=== PATIENT | male | born 1985 | race Caucasian/White ===

== ENCOUNTER 2022-06-22 07:32 | Outpatient (CLI) | payer BC, SELFPAY ==
--- NOTE | 2022-06-22 07:40 | ECG_ITS ---
Measurements Intervals [place] Rate: 86 P: 0 IN: 165 QRS: 9 QRSD: 107 T: 14 QT: 365 QTc: 437 Interpretive Statements SINUS RHYTHM BASELINE ARTIFACT INCOMPLETE RIGHT BUNDLE BRANCH BLOCK BORDERLINE ECG NO PREVIOUS ECG AVAILABLE FOR COMPARISON Electronically Signed On 06-22-2022 15:05:55 CDT by Jeffery Marcano M.D.
[2022-06-22 08:43] LABS: Anion Gap 8 mmol/L (8-16); Blood Urea Nitrogen 13 mg/dL (9-20); Carbon Dioxide 27 mmol/L (22-30); Chloride 103 mmol/L (98-107); Estimated Glomerular Filt Rate > 60; Glucose 169 mg/dL (65-110); Potassium 4.3 mmol/L (3.4-5.0); Sodium 138 mmol/L (137-145)
== END 2022-06-22 07:33 | disposition home or self-care (01) ==
LOC: ANHSURGERY 07:40
PROVIDERS: Anesthesiology; Visit Provider Otolaryngology
DX: E10.9 Type 1 diabetes mellitus without complications (principal); I45.10 Unspecified right bundle-branch block
CPT/HCPCS: 36415; 80048; 93005

== ENCOUNTER 2022-06-27 02:17 | Day surgery (SDC) | payer BC, SELFPAY ==
[2022-06-17 14:35] VITALS: BMI 43.7
--- NOTE | 2022-06-17 14:43 | PC.NURSE ---
Report to the Outpatient Waiting Room, entrance under the green pavilion located off [facility], at time 6:30 on date 06/27/22. OR Time: 8:30. Time changes happen often and if your time is changed the preop area will call you the afternoon before. - You and your visitor will be asked to self-screen and do not enter if you have any COVID symptoms. - Only one visitor and NO children visitors are allowed at this time. - The patient visitor is requested to leave or wait in car when not with patient due to restrictions. - A mask is required within the hospital. Patients may have clear liquids (water, carbonated beverages, clear teas, apple juice) until 3 hours prior to surgery (5:30) with a maximum of 20 ounces. - No food from midnight until time of surgery Take the following medications with a SIP of water the morning of surgery: NONE Medications to discontinue per physician: N/A Date to take last dose: N/A Please no make-up, nail lao, hairspray, perfume, deodorant, or body powder the day of surgery. No jewelry (including any body piercings) or valuables the day of surgery, leave them at home. Please take a shower or bath the night before, or the morning of, surgery with an antibacterial soap. Wear comfortable, loose fitting clothing. - Jewelry must be removed prior to entering the operating room. Rings and piercings that are not removed may be cut off. - The hospital will not accept responsibility for valuables. - Please leave all valuables, including medications, at home the day of surgery. If you are going home after surgery, a licensed regional dedicated truck driver must drive you home. - NO public transportation without another adult. - We recommend that an adult stay with you for 24 hours following discharge. - We also recommend that you do not drive, make important decision, drink alcoholic beverages, or take any drugs that were not prescribed by your health care provider for at least 24 hours after your discharge time. Follow any additional instructions given to you from your surgeon. If you or anyone in your household have experienced Covid symptoms in the past week, please notify your surgeon or the nurse liaison at the phone number below for possible testing. Telephone instructions given to PT - NICOLAS RUBIO and asked if any additional questions and then verbalized understanding. Patient advised to call surgeon office or pre surgery nurse liaison [phone] if any additional questions.
[2022-06-27] VITALS (9 sets, daily range): BP systolic 111–149; BP diastolic 59–92; PULSE 79–91; RESP 10–20; TEMP 36.4–36.5; O2SAT 95–100
[2022-06-27] MEDS: LACTATED RINGERS 1,000 ML 30 ML IV CONT (06:40)
[2022-06-27] MEDS: ACETAMINOPHEN 500 MG TABLET 1000 MG PO (07:07)
[2022-06-27 07:23] LABS: Glucose Point of Care 215 mg/dl (65-105)
--- NOTE | 2022-06-27 07:38 | P.HP_ITS ---
H&P: HPI History of Present Illness Date/Time: 06/27/22 07:38 Chief Complaint: Left TM perforation Narrative: Juan has a left TM perforation secondary to previous ear tubes. Here for tympanoplasty. Review of Systems Review of Systems: All systems reviewed & are unremarkable except as noted in HPI and below PMFSH Social History Social History Smoking status: Never smoker Alcohol intake: current Drinks per week: 3 Substance use: never Substance use type: does not use Living arrangements: with family Spiritual care concerns: No Meds Home Medications and Allergies Home Medications Medication Instructions Recorded Confirmed Type insulin glargine 100 unit/mL (3 48 unit subcut HS 06/17/22 06/17/22 History mL) subcutaneous pen (Lantus Solostar U-100 Insulin) insulin lispro 200 unit/mL (3 mL) See Rx Instructions .Route .COMPLEX 06/17/22 06/17/22 History subcutaneous pen (Humalog KwikPen U-200 Insulin) Allergies Allergy/AdvReac Type Severity Reaction Status Date / Time No Known Allergies Allergy Verified 06/17/22 14:33 Exam Narrative: 40% left central Tm perforation, dry without cholesteatoma or infe ction. Right ear with myringosclerosis. Rest of exam wnl. 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 Has chronic ETD and required several tubes as an adult. Insurance denied BDET for todays surgery so we will just address the TM perforation. r/b/a reviwed, pt understands and agrees, left ear marked. Refer to outpt H&p for full details.
--- NOTE | 2022-06-27 07:41 | P.PNAN_ITS ---
Anes - Initial Pre Proc Eval Procedure: Operation Date: 06/27/22 08:30 Proposed Procedures p Left Tympanoplasty - Bill Topete MD Date/Time: 06/27/22 07:41 Surgeon: Bill Topete MD Pre Op Diagnosis: tympanic membrane perforation- Left Patient Data Age: 36 Gender: M Height: 1.91 m Weight: 158.76 kg Allergies Allergy/AdvReac Type Severity Reaction Status Date / Time No Known Allergies Allergy Verified 06/17/22 14:33 Home Medications Medication Instructions Recorded Confirmed Type insulin glargine 100 unit/mL (3 48 unit subcut HS 06/17/22 06/17/22 History mL) subcutaneous pen (Lantus Solostar U-100 Insulin) insulin lispro 200 unit/mL (3 mL) See Rx Instructions .Route .COMPLEX 06/17/22 06/17/22 History subcutaneous pen (Humalog KwikPen U-200 Insulin) Laboratory Tests 06/27/22 07:17 POC Capillary Glucose 215 mg/dl H mg/dl (65-105) Patient hx anesthesia problems: none Family hx anesthesia problems: none Results Review: All pre-operative results and documents have been reviewed as part of the pre- operative evaluation. [facility] Past Medical History Medical History (Updated 06/27/22 @ 07:41 by David Capps MD) Diabetes Social History Social History Smoking status: Never smoker Alcohol intake: current Drinks per week: 3 Substance use: never Substance use type: does not use Living arrangements: with family Spiritual care concerns: No Anes - Eval Final PreProcedure Day of Procedure 06/27/22 07:41 Patient weight: morbidly obese Heart: regular rate and rhythm Lungs: clear to auscultation Airway: Mallampati scale class II Neurological: alert and oriented Last oral intake: >/= 8 hours ASA classification: III Emergent: no Anesthetic plan: proceed Anesthesia type and monitoring: general ETT and standard monitoring Results Review: All pre-operative results and documents have been reviewed as part of the pre- operative evaluation. Informed Consent: The patient's anesthetic plan and its attendant risks and benefits were discussed with the patient/family/POA. Questions were solicited and answers provided to the satisfaction of the patient/family/POA.
--- NOTE | 2022-06-27 07:41 | WPDHPUPDATE1 ---
History and Physical Update Update Date/Time: 06/27/22 07:41 History and Physical has been reviewed, including an updated exam of the patient. There are NO changes in the patient's condition. Risks, benefits, and alternatives have been discussed and questions answered. Patient agrees to proceed with procedure.
[2022-06-27] MEDS: ceFAZolin 3 GM/D5W 100 ML 100 ML IVPB (08:00)
[2022-06-27] MEDS: EPINEPHrine HCL INJ 1 MG/ML AMPUL IRRIGATION (08:30)
[2022-06-27] MEDS: MUPIROCIN 2% OINT 22 GM TUBE 1 APPLIC TOPICAL (09:26)
[2022-06-27] MEDS: CIPROFLOXACIN HCL 0.3% OP SOLN 2.5 ML BTL 4 DROP EACH EAR (09:28)
--- NOTE | 2022-06-27 09:32 | W.PM.PROC2 ---
Procedure Note - Detailed Date of Procedure 06/27/22 Pre-op Diagnosis tympanic membrane perforation- Left Post-op Diagnosis Same Procedure Performed left medial graft tympanoplasty Surgeon Bill Topete MD Anesthesia General Indications 40% left TM perforation Findings 40% anterior/central TM perforation. No cholesteatoma, ossicles intact. Medial graft from temporalis fascia harvested. Description of Procedure On the date of surgery, the patient was identified in the preoperative holding area.? The left ear was marked indicating the correct side of surgery.? They consented to surgery and was brought back to the operating room and placed under general anesthesia.? A timeout was performed verifying the correct patient identity and procedure to be performed.? The bed was rotated 180 degrees and a small amount of hair was trimmed from the left postauricular area.? They were then prepped and draped in standard fashion for left sided tympanoplasty. Attention first was directed through the ear canal.? Cerumen was removed under binocular microscopy and the perforation was examined and found to be 40-50% of the size of the tympanic membrane.? The middle ear space was dry.? The edges of the perforation were freshened using a murphy pick and microcup forceps.? Next, a 4 quadrant injection was performed with 1% lidocaine with 1:100k epinephrine.? The postauricular sulcus was also injected.? Using an angled and straight north fork blade, a vascular strip was elevated and tympanomeatal flap incisions were made.? The tympanomeatal flap was then elevated partially and a cotton ball soaked in 1:1000 epinephrine diluted with 10cc of saline was placed in the canal. Next, attention was directed behind the ear.? An incision was made in the post-auricular sulcus.? Using bovie electrocautery, dissection was performed through the subcutaneous tissues down to the level of the fascia.? The temporalis fascia was then identified and dissected free superficially and deep.? A 15 blade was used to incise through the fascia and then was elevated.? A 2x2cm window of fascia was then harvested, flattened on a daina block and then placed in a graft press for 5 minutes, then opened to dry. While the graft was prepared, the tympanomeatal flap was elevated and the annulus was lifted out of the annular groove.? The middle ear space was entered with a pick and the annulus was fully elevated out of the groove and the tympanomeatal flap was completely elevated.? Next, the graft was? placed in the canal and in the middle ear space medial to the [place] tympanic membrane.? Some manipulation allowed it to cover the entire perforation.? Nasopore was then packed in the middle ear space further to bulk out the graft.? Once satisfied with the positioning covering the entire perforation, the tympanomeatal flap and graft were laid down.? The ear canal was further packed with nasopore to the catilaginous meatus.? The postauricular incision was then closed with 3-0 vicryl, 4-0 monocryl and dermabond in a layered fashion.? The canal was filled with mupirocin ointment and a cotton ball was placed in the meatus.? The drapes were taken down and care of the patient was returned to anesthsia who woke them up in the OR and transferred to the PACU for recovery in stable condition without complication. Estimated Blood Loss 10 Drains No Packing Yes (nasopore, cotton ball in EAC) Pathology None sent Complications No immediate complications Condition Stable Disposition PACU
[2022-06-27 09:56] LABS: Glucose Point of Care 224 mg/dl (65-105)
[2022-06-27] MEDS: oxyCODONE HCL (*CRX) 5 MG TAB IR PO (10:27)
== END 2022-06-27 11:12 | disposition home or self-care (01) ==
PROVIDERS: Visit Provider Otolaryngology
PROC: (CPT 69631; principal; 2022-06-27 08:30)
DX: H72.02 Central perforation of tympanic membrane, left ear (principal); E11.9 Type 2 diabetes mellitus without complications; Z79.4 Long term (current) use of insulin; E66.01 Morbid (severe) obesity due to excess calories; Z68.41 Body mass index [BMI] 40.0-44.9, adult
CPT/HCPCS: 69631; 15769; 82948; A9270; J0171; J0690; J1100; J2250; J2405; J2704; J3010; J7120